=== PATIENT | female | born 1990 | race Caucasian/White ===

== ENCOUNTER 2016-10-01 00:27 | Emergency (ER) | payer OTHER ==
[~2016-10-01] VITALS: Ht 157.5 cm; Wt 69.0 kg
[~2016-10-01 00:27] MED LIST: ASPIRIN81 M2 PO; BENADRYL25 MG PO; CENTRUM COMPLE1 EACH PO; FLEXERIL10 MG PO; FLINTSTONES M100 MCG PO; GABAPENTIN100 MG PO; IBUPROFEN800 MG PO; LAMICTAL; LAMICTAL200 MG PO; LEXAPRO; LEXAPRO10 MG PO; MOTRIN600 MG PO; MOTRIN800 MG; MULTIVITAMIN1 EAC1 PO; Motrin PO; NAPROSYN500 MG PO; NAPROXEN500 M2 PO; NOHOMEMEDS; NORCO 5/3251 TABLET PO; PREDNISONE10 MG PO; PROVENTIL,2.5 MG/3 M IH; PROVENTIL17 GM IH; RISPERDAL1 MG PO; RISPERIDONE4 MG PO; TRAMADOL HCL50 MG PO; TRILEPTAL300 MG PO; TYLENOL REGULA325 MG PO; ULTRAM50 MG PO; VALIUM5 MG PO; VENTOLIN17 GM IH; [UNRECOGNIZED DRUG - REMARK] PO
[2016-10-01] MEDS ORDERED: NAPROSYN500 MG PO (02:24)
[2016-10-01 03:12] VITALS: BP 123/72
== END 2016-10-01 03:13 | disposition home or self-care (01) ==
LOC: EME 00:27 → EXP 00:27
DX: S90.32XA Contusion of left foot, initial encounter (principal); W20.8XXA Other cause of strike by thrown, projected or falling object, initial encounter; Y92.199 Unspecified place in other specified residential institution as the place of occurrence of the external cause; Y99.0 Civilian activity done for income or pay
CPT/HCPCS: 73630; 99281; 99284

== ENCOUNTER 2017-05-29 07:32 | Day surgery (SDC) | payer BC ==
[~2017-05-29] VITALS: Ht 157.5 cm; Wt 68.1 kg
[~2017-05-29 07:32] MED LIST changes: +ERGOCALCIF50000 UNIT PO
[2017-05-29 08:10] LABS: BASOPHIL (%) 0.7 % (0-1); BASOPHIL COUNT 0.1 K/uL (0-0.1); EOSINOPHIL COUNT 0.1 K/uL (0-0.3); HEMATOCRIT 44.2 % (36.0-46.0); HEMOGLOBIN 14.6 G/DL (11.9-15.5); IMMATURE GRANULOCYTE (%) 0.2 % (0.0-0.7); LYMPHOCYTE (%) 33.9 % (15-42); LYMPHOCYTE COUNT 3.1 K/uL (1.0-2.8); MCH 29.6 PG (29.0-34.0); MCV 89.5 FL (83-99); MONOCYTE (%) 8.2 % (3-12); MONOCYTE COUNT 0.7 K/uL (0-0.8); PLATELET COUNT 264 K/uL (156-360); RBC DIS.WIDTH-CV 12.8 % (11.8-14.6); RED BLOOD COUNT 4.94 M/uL (3.80-5.20)
[2017-05-29 08:23] VITALS: BP 116/69
[2017-05-29] MEDS ORDERED: OXYCODONE HCL5 MG PO (10:30)
[2017-05-29] MEDS ORDERED: IBUPROFEN800 MG PO (10:30)
[2017-05-29 11:30] VITALS: BP 97/65
[2017-05-29 12:30] VITALS: BP 126/58; BP 98/56
[2017-05-29 14:25] VITALS: BP 109/57
== END 2017-05-29 14:37 | disposition home or self-care (01) ==
LOC: SDC 07:32
PROVIDERS: Obstetrics & Gynecology
PROC: 0UT64ZZ Resection of Left Fallopian Tube, Percutaneous Endoscopic Approach (ICD-10-PCS; principal; 2017-05-29)
DX: Z30.2 Encounter for sterilization (principal); N83.202 Unspecified ovarian cyst, left side; J45.909 Unspecified asthma, uncomplicated; G40.909 Epilepsy, unspecified, not intractable, without status epilepticus; F41.9 Anxiety disorder, unspecified; Z82.49 Family history of ischemic heart disease and other diseases of the circulatory system; Z82.5 Family history of asthma and other chronic lower respiratory diseases; Z83.3 Family history of diabetes mellitus; Z80.3 Family history of malignant neoplasm of breast; Z83.49 Family history of other endocrine, nutritional and metabolic diseases; Z88.5 Allergy status to narcotic agent; Z88.6 Allergy status to analgesic agent; Z91.040 Latex allergy status
CPT/HCPCS: 84702; 85025; 86850; 86900; 86901; 88302; J0330; J1885; J2175; J2250; J2405; J3010

== ENCOUNTER 2017-07-22 13:01 | Emergency (ER) | payer BC ==
[~2017-07-22] VITALS: Ht 157.5 cm; Wt 69.1 kg
[~2017-07-22 13:01] MED LIST changes: +OXYCODONE HCL5 MG PO
[2017-07-22] MEDS ORDERED: VENTOLIN HFA18 GM IH (15:33)
[2017-07-22 16:03] VITALS: BP 136/83
== END 2017-07-22 16:13 | disposition home or self-care (01) ==
LOC: EME 13:01
PROVIDERS: Physician Assistant
DX: J98.01 Acute bronchospasm (principal); G40.909 Epilepsy, unspecified, not intractable, without status epilepticus; F41.9 Anxiety disorder, unspecified; F32.9 Major depressive disorder, single episode, unspecified; F17.200 Nicotine dependence, unspecified, uncomplicated; Z98.51 Tubal ligation status; Z91.040 Latex allergy status; Z88.6 Allergy status to analgesic agent
CPT/HCPCS: 71046; 85379; 94640; 94640 76; 94664; 99281; 99284; J1100